=== PATIENT | female | born 1985 | race Caucasian/White ===

== ENCOUNTER 2019-06-12 11:20 | Emergency (ER) | payer OTHER ==
[~2019-06-12] VITALS: Wt 69.0 kg
[~2019-06-12 11:20] MED LIST: SULF500T5 PO
[2019-06-12 11:29] VITALS: BP 132/78; PULSE 78; RESP 18
--- NOTE | 2019-06-12 12:10 | ERD ---
ER Documentation Chief Complaint Chief Complaint DENTAL PAIN X 1 WEEK HPI 34-year-old female, presents to the emergency department, complaining of worsening of dental pain for 1 week. The patient was seen already by her dentist and was told that she needs a root canal. She denies fever, no chills, no difficulty swallowing. ROS All systems reviewed and are negative except as per history of present illness. Medications Home Meds Active Scripts Acetaminophen* (Tylenol*) 325 Mg Tablet, 2 TAB PO Q6 PRN for PAIN AND OR ELEVATED TEMP, #20 TAB Prov:MAXWELL CHAMORRO MD 06/12/19 Hydrocodone/Acetaminophen ([place] 5-325 Tablet) 1 Each Tablet, 1 TAB PO BID PRN for PAIN, #10 TAB Prov:MAXWELL CHAMORRO MD 06/12/19 Clindamycin Hcl* (Clindamycin Hcl*) 300 Mg Capsule, 300 MG PO TID for 10 Days, CAP Prov:MAXWELL CHAMORRO MD 06/12/19 Reported Medications Sulfasalazine* (Sulfazine*) 500 Mg Tablet, 500 MG PO BEFORE MEALS 03/15/14 [None] No Conflict Check 04/27/13 Allergies Allergies: Coded Allergies: Penicillins (Verified Allergy, Severe, 04/27/13) PMhx/Soc History of Surgery: No Anesthesia Reaction: No Hx Neurological Disorder: No Hx Respiratory Disorders: No Hx Cardiac Disorders: No Hx Psychiatric Problems: No Hx Miscellaneous Medical Probl: No Hx Alcohol Use: No Hx Substance Use: No Hx Tobacco Use: No FmHx Family History: No diabetes, No coronary disease Physical Exam Vitals Vital Signs Date Temp Pulse Resp B/P (MAP) Pulse Ox O2 O2 Flow FiO2 Time Delivery Rate 06/12/19 98.0 78 18 132/78 99 11:29 (96) Physical Exam Const: No acute distress Head: Atraumatic Eyes: Normal Conjunctiva ENT: Poor oral dentition, multiple cavities. No evidence of abscess. Normal External Ears, Nose and Mouth. Neck: Full range of motion. No meningismus. Resp: Clear to auscultation bilaterally Cardio: Regular rate and rhythm, no murmurs Abd: Soft, non tender, non distended. Normal bowel sounds Skin: No petechiae or rashes Back: No midline or flank tenderness Ext: No cyanosis, or edema Neur: Awake and alert Psych: Normal Mood and Affect Procedures/MDM Differential diagnosis include but not limited to: Dental abscess, parotitis, sialoadenitis, lymphadenopathy, facial abscess. Low suspicion for systemic infection. Physical examination and clinical presentation consistent most likely with dental cavity. During the ED course the patient remained stable, no new complaints. Clinical impression discussed with the patient who agrees with management. The patient is stable to be treated outpatient and will be discharged home. Some side effects of prescribed medications (headache, rash, nausea, vomiting, diarrhea, drowsiness, habituation, bleeding, hypertension, interactions with other medications) were reviewed. The patient was instructed to follow up with the primary care provider and dentist in the next 48h. If symptoms persist, worsen or new symptoms develop, then patient should return to the ED immediately. Instructions explained and given directly by me to the patient with acknowledgment and demonstrated understanding. Disclaimer: Inadvertent spelling and grammatical errors are likely due to EHR/dictation software use and do not reflect on the overall quality of patient care. Also, please note that the electronic time recorded on this note does not necessarily reflect the actual time of the patient encounter. Departure Diagnosis: Primary Impression: Tooth disease Condition: Stable Additional Instructions: Thank you very much for allowing us to participate in your care. Your health and safety is our top priority at [facility]. The evaluation in the emergency department has been done to rule out an acute emergency. Chronic, vra-upil-tawizrxgdgv conditions may have not been evaluated ; therefore, you need to follow up with a primary care provider in the next 48h. If symptoms persist, worsen or new symptoms develop, then patient should return to the ED immediately. Call your primary care doctor TOMORROW for an appointment during the next 2-4 days and bring all the information provided. Have prescriptions filled and follow precisely the directions on the label. If the symptoms get worse and your provider is unavailable, return to the Emergency Department immediately. MAXWELL CHAMORRO MD Jun 12, 2019 12:10
[2019-06-12] MEDS ORDERED: CLIN300C10 PO (12:11)
[2019-06-12] MEDS ORDERED: HYDR-4011 PO (12:11)
[2019-06-12] MEDS ORDERED: ACET325T33 PO (12:11)
== END 2019-06-12 12:12 | disposition home or self-care (01) ==
LOC: E/R 11:20
DX: K08.9 Disorder of teeth and supporting structures, unspecified (principal)
CPT/HCPCS: 99283